=== PATIENT | female | born 1995 | race Caucasian/White ===

== ENCOUNTER 2017-03-05 11:24 | Outpatient (CLI) | payer MEDICAID ==
[~2017-03-05] VITALS: Ht 154.9 cm; Wt 54.8 kg
[2017-03-05] MEDS ORDERED: PNV11TAB5 PO (11:58)
[2017-03-05] MEDS ORDERED: ACET500C5 PO (11:59)
[2017-03-05 12:00] VITALS: Ht 154.9 cm; Wt 54.8 kg
[2017-03-05 12:01] VITALS: BP 111/65; PULSE 106; RESP 20
[2017-03-05] MEDS ORDERED: LACTATED RINGER'S 1,000 ML IV ONE ×2 (12:30→15:00)
--- NOTE | 2017-03-05 13:13 | RADRPT ---
PROCEDURE: Limited obstetric ultrasound CLINICAL INDICATION: Pelvic cramping TECHNIQUE: Multiple transverse and longitudinal grayscale images of the pelvis were obtained carvajal sabdominally and transvaginally.. COMPARISON: same day FINDINGS: The cervix has a length of 3.5 cm. There is trace fluid within the cervix There is a single viable intrauterine gestation. Cardiac activity is present with 163 beats per min [place]. There is a vertex presentation. The placenta is anterior. There is no evidence for an abruption or placenta previa. RPTAT: AA IMPRESSION: Cervix length measures 3.5 cm. Trace amount of fluid within the cervix. .Luis Manuel Alegre MD, MD Date Time Electronically viewed and signed by .Luis Manuel Alegre MD, on 03/05/2017 13:13 .S/
[2017-03-05 13:25] LABS: ADD UMIC NO; UR ASCORBIC ACID NEGATIVE (NEGATIVE); UR BILIRUBIN (Dip) NEGATIVE (NEGATIVE); UR BLOOD (Dip) NEGATIVE (NEGATIVE); UR CLARITY CLEAR (CLEAR); UR COLOR YELLOW (YELLOW); UR GLUCOSE (Dip) NEGATIVE (NEGATIVE); UR KETONES (Dip) 2+ mg/dL (NEGATIVE); UR LEUKOCYTE ESTERASE (Dip) NEGATIVE Leu/ul (NEGATIVE); UR NITRITE (Dip) NEGATIVE (NEGATIVE); UR SPECIFIC GRAVITY (Dip) 1.019 (1.003-1.030); UR TOTAL PROTEIN (Dip) NEGATIVE (NEGATIVE); UR UROBILINOGEN (Dip) 1+ mg/dL (NEGATIVE)
[2017-03-05 13:36] LABS: ABNORMAL IP MESSAGE 1; BASOPHILS % 0.2 % (0.0-2.0); HEMATOCRIT 31.8 % (37.0-47.0); HEMOGLOBIN 11.6 g/dl (12.0-16.0); LYMPHOCYTES # 0.5 10^3/ul (0.8-2.9); MEAN CORPUSCULAR HEMOGLOBIN 35.4 pg (29.0-33.0); MEAN CORPUSCULAR HGB CONC 36.5 g/dl (32.0-37.0); MEAN PLATELET VOLUME 8.5 fl (7.4-10.4); MONOCYTE # 0.4 10^3/ul (0.3-0.9); MONOCYTES % 4.5 % (0.0-13.0); NEUTROPHIL # 8.6 10^3/ul (1.6-7.5); NEUTROPHILS % 89.8 % (30.0-74.0); PLATELET COUNT 244 10^3/UL (140-415); RED BLOOD COUNT 3.28 10^6/ul (4.20-5.40); RED CELL DISTRIBUTION WIDTH 13.1 % (11.5-14.5); WHITE BLOOD COUNT 9.6 10^3/ul (4.8-10.8)
[2017-03-05 13:56] LABS: ALBUMIN 3.5 g/dl (3.3-4.9); ALBUMIN/GLOBULIN RATIO 1.09; BILIRUBIN,INDIRECT 0.5 mg/dl (0-1.1); BILIRUBIN,TOTAL 0.5 mg/dl (0.2-1.3); CALCIUM 8.7 mg/dl (8.4-10.2); CREATININE 0.59 mg/dl (0.44-1.00); POTASSIUM 3.9 mmol/L (3.5-5.1); TOTAL PROTEIN 6.7 g/dl (6.1-8.1)
[2017-03-05 17:04] LABS: ADD UMIC YES; UR ASCORBIC ACID NEGATIVE (NEGATIVE); UR BACTERIA MANY /HPF (NONE SEEN); UR BILIRUBIN (Dip) NEGATIVE (NEGATIVE); UR BLOOD (Dip) NEGATIVE (NEGATIVE); UR CLARITY SLIGHTLY CLOUDY (CLEAR); UR COLOR YELLOW (YELLOW); UR GLUCOSE (Dip) NEGATIVE (NEGATIVE); UR KETONES (Dip) 1+ mg/dL (NEGATIVE); UR LEUKOCYTE ESTERASE (Dip) 3+ Leu/ul (NEGATIVE); UR NITRITE (Dip) NEGATIVE (NEGATIVE); UR RBC 1 /HPF (0-5); UR SPECIFIC GRAVITY (Dip) 1.004 (1.003-1.030); UR SQUAMOUS EPITHELIAL CELL FEW /HPF (FEW); UR TOTAL PROTEIN (Dip) NEGATIVE (NEGATIVE); UR UROBILINOGEN (Dip) NEGATIVE (NEGATIVE)
[2017-03-05] MEDS ORDERED: CEPH250S33 PO (18:27)
--- NOTE | 2017-03-05 18:30 | PN ---
Triage Information Date/Time 03/05/2017 Reason for visit: Weeks of Gestation 23 weeks aned 1 days /Para Diabetes: none Hypertention: none Additional information 22-year-old with IUP at 23 weeks and 1 day presented with complaint of nausea and cramping. She was noted to have irregular contractions the monitor and 2+ ketones in the urine. Denies any leaking of fluid or vaginal bleeding or decreased movement. Denies any competition during her course. Objective Vital Signs Date Time Temp Pulse Resp B/P Pulse Ox O2 Delivery O2 Flow Rate FiO2 03/05/17 12:01 98.7 106 20 111/65 Room Air Heart Rate: 130's Contractions: >10 Minutes Apart Exam General appearance: Alert and oriented 4. Does not appear to be in any acute distress. Abdomen: Soft, gravid, fundal height consistent with gestational age, no tenderness, no rebound tenderness NST occasional rare contraction that resolved after IV hydration : Appropriate for gestational age UA: 20 white BC, 2+ leukocyte esterase. And second UA after hydration Initial UA, only 2+ ketones Exam consistent with UTI. Asymptomatic fibronectin negative Cervical length: 3.5 cm Results/Medications Result Diagram: 03/05/17 1324 03/05/17 1326 Results 24 hrs Laboratory Tests Test 03/05/17 11:50 03/05/17 12:10 03/05/17 13:24 03/05/17 13:26 Urine Color YELLOW Urine Clarity CLEAR Urine pH 5.0 Urine Specific [place] 1.019 Urine Ketones 2+ H Urine Nitrite NEGATIVE Urine Bilirubin NEGATIVE Urine Urobilinogen 1+ H Urine Leukocyte Esterase NEGATIVE Urine Hemoglobin NEGATIVE Urine Glucose NEGATIVE Urine Total Protein NEGATIVE Fibronectin NEGATIVE White Blood Count 9.6 Red Blood Count 3.28 L Hemoglobin 11.6 L Hematocrit 31.8 L Mean Corpuscular Volume 97.0 Mean Corpuscular Hemoglobin 35.4 H Mean Corpuscular Hemoglobin Concent 36.5 Red Cell Distribution Width 13.1 Platelet Count 244 Mean Platelet Volume 8.5 Neutrophils % 89.8 H Lymphocytes % 5.0 L Monocytes % 4.5 Eosinophils % 0.0 Basophils % 0.2 Nucleated Red Blood Cells % 0.0 Neutrophils # 8.6 H Lymphocytes # 0.5 L Monocytes # 0.4 Eosinophils # 0.0 Basophils # 0.0 Nucleated Red Blood Cells # 0.0 Sodium Level 137 Potassium Level 3.9 Chloride Level 104 Carbon Dioxide Level 23 Anion Gap 14 Blood Urea Nitrogen 9 Creatinine 0.59 Glucose Level 91 Calcium Level 8.7 Total Bilirubin 0.5 Direct Bilirubin 0.00 Indirect Bilirubin 0.5 Aspartate Amino Transf (AST/SGOT) 23 Alanine Aminotransferase (ALT/SGPT) 34 Alkaline Phosphatase 83 Total Protein 6.7 Albumin 3.5 Globulin 3.20 Albumin/Globulin Ratio 1.09 Test 03/05/17 16:22 Urine Color YELLOW Urine Clarity SLIGHTLY CLOUDY A Urine pH 8.0 Urine Specific [place] 1.004 Urine Ketones 1+ H Urine Nitrite NEGATIVE Urine Bilirubin NEGATIVE Urine Urobilinogen NEGATIVE Urine Leukocyte Esterase 3+ H Urine Microscopic RBC 1 Urine Microscopic WBC 20 H Urine Squamous Epithelial Cells FEW Urine Bacteria MANY A Urine Hemoglobin NEGATIVE Urine Glucose NEGATIVE Urine Total Protein NEGATIVE Disposition: Discharge Assessment/Plan IUP at 23 weeks and 1 day False labor contractions due to UTI asymptomatic Resolved with IV hydration nausea resolved with hydration and patient passed p.o. challenge UA consistent with UTI Discussed with the patient regarding antibiotics for 7 days with adequate p.o. hydration she reports significant improvement of the symptoms DC home Follow-up in 2 days with her primary OB Urine sent to culture and sensitivity labor precaution and kick count discussed Patient verbalized understanding. GODFREY JOHNSON MD Mar 05, 2017 18:30
--- NOTE | 2017-03-05 19:37 | TRIAGE ---
OB Triage Datetime Report Generated by CPN: 03/05/2017 19:37 Datetime: 03/05/2017 18:46 Labor Evaluation Frequency: 0 Monitor Mode: External Resting Tone [place]: Relaxed Pain Assessment Pain Presence: None/Denies Datetime: 03/05/2017 18:00 Decelerations: None Datetime: 03/05/2017 16:52 Pain Assessment Pain Presence: None/Denies Datetime: 03/05/2017 16:51 Labor Evaluation Frequency: 0 Monitor Mode: External Resting Tone [place]: Relaxed Datetime: 03/05/2017 15:52 Labor Evaluation Frequency: 0 Monitor Mode: External Resting Tone [place]: Relaxed Datetime: 03/05/2017 13:32 Labor Evaluation Frequency: 2/30 sec Monitor Mode: External Duration (sec)2399: 40-50 Quality: Mild Resting Tone [place]: Relaxed Pain Assessment Pain Presence: None/Denies Datetime: 03/05/2017 12:54 Labor Evaluation Frequency: 6/hr Monitor Mode: External Duration (sec)2399: 30-40 sec Quality: Mild Resting Tone [place]: Relaxed Datetime: 03/05/2017 12:07 Labor Evaluation Frequency: occasional Monitor Mode: External Duration (sec)2399: 30-40 Quality: Mild Resting Tone [place]: Relaxed Datetime: 03/05/2017 11:54 Contraction Comments: tplower abd Comments: u/s off Datetime: 03/05/2017 11:49 Assessment Type: Triage Maternal Assessment Level of Consciousness: Fully Conscious DTR's/Clonus: DTRs 2+; No Clonus Headache: Denies Blurred Vision: No Respiratory Effort: Unlabored; Regular Rhythm; Equal Expansion Breath Sounds, Left: Clear and Equal Breath Sounds, Right: Clear and Equal Nausea/Vomiting: Denies RUQ Epigastric Pain: Denies Facial Edema: None Fall Risk Assessment History of Falling: (0) No Secondary Diagnosis: (0) No Ambulatory Aid: (0) Bedrest/Nurse Assist IV Therapy: (0) No Gait: (0) Normal/Bedrest/Immobile Mental Status: (0) Oriented to Own Ability Fall Score: 0 Fall Risk Score Definition: No Risk: No action required Datetime: 03/05/2017 11:48 Heart Rate FHR Baseline Rate: 160 FHR Baseline Changes: No Baseline Change Comments: aga Datetime: 03/05/2017 11:45 Time of Arrival: 03/05/2017 11:46 EGA: 23.1 Arrived By: Ambulatory Arrived From: Home Chief Complaint: cramping and vomited last night, occasional nausea Movement: Present Contractions: Occasional Rupture of Membranes: Denies Vaginal Bleeding: None Vaginal Discharge: Denies Recent Sexual Intercouse: Denies Abdominal Trauma: Not Applicable Patient Complaints: Cramping; Nausea; Vomiting Time Provider Notified: 03/05/2017 12:05 Provider Notified: mack Initial Plan: iv and po hydration. ffn, cl, cbc, ua and cmp
== END 2017-03-05 18:10 | disposition home or self-care (01) ==
LOC: OBT 11:24 → OBG 11:24 → OBT 18:10
PROVIDERS: ATTEND Obstetrics & Gynecology
DX: O47.02 False labor before 37 completed weeks of gestation, second trimester (principal); O23.42 Unspecified infection of urinary tract in pregnancy, second trimester; Z3A.23 23 weeks gestation of pregnancy
CPT/HCPCS: 76817; 80053; 81001; 81003; 82731; 85025; J7120; 36415; 96360; 96361; G0463

== ENCOUNTER 2017-06-26 15:00 | Inpatient (IN) | END 2017-06-30 18:22 | disposition home or self-care (01) | DRG 775 ==